=== PATIENT | female | born 1955 | race Caucasian/White ===

== ENCOUNTER 2021-07-10 14:47 | Observation (INO) ==
[2021-07-10] MEDS ORDERED: NITROGLYCERIN SL 0.4 MG TABLET SL PRN (15:08)
[2021-07-10 15:21] LABS: Basophils # 0.1 10*3/uL (0.0-0.2); Basophils % 0.5 % (0.0-0.8); Eosinophils # 0.2 10*3/uL (0.0-0.87); Eosinophils % 1.4 % (0.00-10.9); Hematocrit 39.1 VOL% (35.7-47.0); Hemoglobin 13.3 GM/DL (12.0-16.0); Immature Granulocytes % 0.4 %; Immature Granulocytes Absolute 0.05 #; Lymphocytes # 3.5 10*3/uL (1.4-4.0); Mean Corpuscular Volume 80.8 FL (87-102); Mean Platelet Volume 9.6 FL (9.6-12.0); Monocytes % 6.8 % (1.7-12.7); Neutrophils % 63.9 % (38.7-73.9); Platelet Count 405 T/CUMM (130-400); Red Blood Count 4.84 MC/CUMM (3.8-5.5); Red Cell Distribution Width 14.1 % (9.3-17.3)
[2021-07-10 15:33] LABS: PT Patient Result 10.7 SECS (10.5-12.0); Partial Thromboplastin Time 25.4 SECS (23.9-33.8)
[2021-07-10 15:37] LABS: Calcium 9.6 MG/DL (8.5-10.1); Osmolality,Calculated 276.7 MOS/KG (273-304); Potassium 4.8 MMOL/L (3.5-5.1)
[2021-07-10] MEDS ORDERED: ZALEPLON 5 MG CAPSULE PO PRN (15:48)
[2021-07-10] MEDS ORDERED: GLUCAGON 1 MG VIAL IM PRN (15:48)
[2021-07-10] MEDS ORDERED: ONDANSETRON 4 MG/2 ML VIAL IV PRN (15:48)
[2021-07-10] MEDS ORDERED: DEXTROSE 50% 25 GM/50 ML VIAL IV PRN (15:48)
[2021-07-10] MEDS ORDERED: POTASSIUM CHLORIDE 20 MEQ TABLET PO PRN (15:48)
[2021-07-10] MEDS ORDERED: MAGNESIUM SULF RIDER 4 GM/100 ML PREMIX IV PRN (15:48)
[2021-07-10] MEDS ORDERED: MAGNESIUM SULF RIDER 2 GM/50 ML PREMIX IV PRN (15:48)
[2021-07-10] MEDS: INSULIN LISPRO 100 UNIT/ML SUBCUT SCH ×2 (17:39→21:05)
[2021-07-10] MEDS: SODIUM CHLORIDE 0.45% 1,000 ML IV SCH (17:48)
[2021-07-10] MEDS: ENOXAPARIN 100 MG/ML SYRINGE SUBCUT SCH (17:48)
[2021-07-10] MEDS: NITROGLYCERIN 2% OINT 1 INCH/GM PACK TOP SCH ×2 (17:49→23:52)
[2021-07-10] MEDS ORDERED: INSULIN DETEMIR 100 UNIT/ML SUBCUT SCH (21:00)
[2021-07-10] MEDS: sitaGLIPtin 100 MG TABLET PO SCH (21:05)
[2021-07-10] MEDS: PROPRANOLOL 40 MG TABLET PO SCH (21:05)
[2021-07-10] MEDS: metFORMIN 500 MG TABLET PO SCH (21:05)
[2021-07-11] MEDS: ENOXAPARIN 100 MG/ML SYRINGE SUBCUT SCH (05:03)
[2021-07-11] MEDS: NITROGLYCERIN 2% OINT 1 INCH/GM PACK TOP SCH (05:03)
[2021-07-11 05:56] LABS: Risk Ratio 6.9; VLDL Cholesterol 52.4 MG/DL
[2021-07-11] MEDS: SODIUM CHLORIDE 0.45% 1,000 ML IV SCH ×2 (07:09→09:49)
[2021-07-11] MEDS: INSULIN LISPRO 100 UNIT/ML SUBCUT SCH ×4 (08:41→21:21)
[2021-07-11] MEDS ORDERED: ASPIRIN 325 MG TABLET PO SCH (09:00)
[2021-07-11] MEDS: PROPRANOLOL 40 MG TABLET PO SCH ×3 (09:49→21:18)
[2021-07-11] MEDS: DULoxetine 30 MG CAPSULE PO SCH (09:49)
[2021-07-11] MEDS: PANTOPRAZOLE 40 MG TABLET PO SCH (09:50)
[2021-07-11] MEDS: sitaGLIPtin 100 MG TABLET PO SCH ×2 (09:50→21:19)
[2021-07-11] MEDS: metFORMIN 500 MG TABLET PO SCH ×2 (09:50→21:19)
[2021-07-11] MEDS: ROSUVASTATIN 20 MG TABLET PO SCH (09:53)
[2021-07-11] MEDS ORDERED: ACETAMINOPHEN 325 MG TABLET PO PRN (11:00)
[2021-07-11 11:16] LABS: Basophils # 0.1 10*3/uL (0.0-0.2); Basophils % 0.7 % (0.0-0.8); Eosinophils # 0.2 10*3/uL (0.0-0.87); Eosinophils % 1.5 % (0.00-10.9); Hematocrit 36.3 VOL% (35.7-47.0); Hemoglobin 12.3 GM/DL (12.0-16.0); Immature Granulocytes % 0.4 %; Immature Granulocytes Absolute 0.04 #; Lymphocytes % 30.2 % (21.3-54.2); Mean Corpuscular HGB Conc 33.9 GM/DL (32-36); Mean Platelet Volume 9.4 FL (9.6-12.0); Monocytes % 6.4 % (1.7-12.7); Neutrophils % 60.8 % (38.7-73.9); Platelet Count 327 T/CUMM (130-400); Red Blood Count 4.48 MC/CUMM (3.8-5.5); White Blood Count 10.1 T/CUMM (4-12)
[2021-07-11 11:30] LABS: Osmolality,Calculated 277.7 MOS/KG (273-304); Potassium 3.7 MMOL/L (3.5-5.1)
[2021-07-11] MEDS ORDERED: INSULIN GLARGINE 100 UNIT/ML SUBCUT SCH (21:00)
[2021-07-12] MEDS: INSULIN LISPRO 100 UNIT/ML SUBCUT SCH ×3 (07:47→17:18)
[2021-07-12] MEDS ORDERED: ASPIRIN EC 81 MG TABLET PO SCH (09:00)
[2021-07-12] MEDS: PANTOPRAZOLE 40 MG TABLET PO SCH (09:29)
[2021-07-12] MEDS: metFORMIN 500 MG TABLET PO SCH (09:29)
[2021-07-12] MEDS: DULoxetine 30 MG CAPSULE PO SCH (09:30)
[2021-07-12] MEDS: PROPRANOLOL 40 MG TABLET PO SCH ×2 (09:30→16:52)
[2021-07-12] MEDS: sitaGLIPtin 100 MG TABLET PO SCH (09:30)
[2021-07-12] MEDS: ROSUVASTATIN 20 MG TABLET PO SCH (09:30)
[2021-07-12 16:11] VITALS: BP 125/80
== END 2021-07-12 18:29 | disposition home or self-care (01) ==
LOC: N.EDINP 14:47 → N.ED 14:47 → N.TELES 16:46
PROVIDERS: ADMIT Internal Medicine; ATTEND Internal Medicine